=== PATIENT | female | born 2000 | race Two or more races ===

== ENCOUNTER 2019-01-27 09:53 | Emergency (ER) | payer OTHER, BC ==
[~2019-01-27] VITALS: Ht 165.1 cm; Wt 116.1 kg
[2019-01-27 10:00] VITALS: BP 148/98
== END 2019-01-27 14:29 | disposition home or self-care (01) ==
LOC: ER 09:53
DX: S29.012A Strain of muscle and tendon of back wall of thorax, initial encounter (principal); V43.62XA Car passenger injured in collision with other type car in traffic accident, initial encounter; Y93.89 Activity, other specified; Y92.488 Other paved roadways as the place of occurrence of the external cause; Y99.8 Other external cause status
CPT/HCPCS: 72100